=== PATIENT | female | born 1995 | race American Indian/Alaskan Native ===

== ENCOUNTER 2019-03-12 20:45 | Inpatient (IN) | payer MEDICARE ==
[2019-03-12] MEDS ORDERED: ZOFRAN IV PRN (21:01)
[2019-03-12] MEDS ORDERED: NUBAIN IV PRN (21:01)
[2019-03-12] MEDS ORDERED: NARCAN 0.4 MG/1 ML IV PRN (21:01)
[2019-03-12] MEDS ORDERED: BRETHINE IVP PRN (21:01)
[2019-03-12] MEDS ORDERED: PHENERGAN PO PRN (21:01)
[2019-03-12] MEDS ORDERED: BRETHINE SUB-Q PRN (21:01)
[2019-03-12] MEDS ORDERED: MINERAL OIL PO PRN (21:01)
[2019-03-12] MEDS ORDERED: XYLOCAINE 2% INFILTRATI ONE (21:01)
[2019-03-12] MEDS ORDERED: AMPICILLIN/NS 2 GM/100 ML 2 GM/100 ML BAG IV ONE (21:01)
[2019-03-12] MEDS ORDERED: CERVIDIL VG ONE (21:33)
--- NOTE | 2019-03-12 21:46 | History and Physical Report ---
History of Present Illness Date of examination: 03/12/19 Date of admission: 03/12/19 20:45 Chief complaint: Here for induction History of present illness: The patient is a 24 yo at 41.3 wks EGA who presents for IOL for post-dates. She reports positive movement, occasional contractions, and denies vaginal bleeding or leaking fluid. She has received care with [facility] since 26 weeks EGA. Her has been complicated by late care. She is GBS positive. Past History Past Medical History: hematologic disorders (HgbAS), other (Bipolar disorder) Past Surgical History: no surgical history [employer] History: abnormal PAP smear (ASCUS, HPV+ in November 2018) Family/Genetic History: diabetes, hypertension - Obstetrical History Expected Date of Delivery: 03/02/19 Actual Gestation: 41 Week(s) 3 Day(s) : 1 Para: 0 Hx # Term Pregnancies: 0 Number of Pregnancies: 0 Spontaneous Abortions: 0 Induced : 0 Number of Living Children: 0 Medications and Allergies Allergies Allergy/AdvReac Type Severity Reaction Status Date / Time No Known Drug Allergies Allergy Unknown Verified 03/12/19 21:18 Active Meds: Active Medications Ephedrine Sulfate (Ephedrine Sulfate) 10 mg IV Q2M PRN PRN Reason: Hypotension Fentanyl (Sublimaze) 100 mcg IV Q2H PRN PRN Reason: Labor Pain Oxytocin/Sodium Chloride (Pitocin/Ns 20 Unit/1000ml Drip) 20 units in 1,000 mls @ 125 mls/hr IV DIRECT NIKKI Oxytocin/Sodium Chloride (Pitocin/Ns 30 Unit/500ml) 30 units in 500 mls @ 1 mls/hr IV TITR NIKKI; Protocol Lactated Ringer's (Lactated Ringers) 1,000 mls @ 125 mls/hr IV DIRECT NIKKI Ampicillin Sodium (Ampicillin/Ns 2 Gm/100 Ml) 2 gm in 100 mls @ 100 mls/hr IV ONCE ONE; Protocol Stop: 03/12/19 22:00 Ampicillin Sodium (Ampicillin/Ns 1 Gm/50 Ml) 1 gm in 50 mls @ 100 mls/hr IV Q4HR NIKKI; Protocol Mineral Oil (Mineral Oil) 30 ml PO QHS PRN PRN Reason: Constipation Nalbuphine HCl (Nubain) 10 mg IV Q2H PRN PRN Reason: Pain, Moderate (4-6) Naloxone HCl (Narcan 0.4 Mg/1 Ml) 0.1 mg IV Q2MIN PRN PRN Reason: Res Rate </= 8 or 02 SAT < 92% Ondansetron HCl (Zofran) 4 mg IV Q8H PRN PRN Reason: Nausea And Vomiting Promethazine HCl (Phenergan) 25 mg PO Q6H PRN PRN Reason: Nausea And Vomiting Terbutaline Sulfate (Brethine) 0.25 mg SUB-Q ONCE PRN PRN Reason: Hyperstimulation/Hypertonicity Terbutaline Sulfate (Brethine) 0.25 mg IVP ONCE PRN PRN Reason: Hyperstimulation/Hypertonicity Review of Systems All systems: negative Cardiovascular: no chest pain Respiratory: no shortness of breath Genitourinary: contractions (occasional), no vaginal bleeding, no vaginal discharge, no leakage of fluid - Vital Signs Vital signs: Vital Signs Pulse BP 105 H 131/77 03/12/19 21:09 03/12/19 21:09 Temp Pulse Resp BP Pulse Ox 105 H 131/77 03/12/19 21:09 03/12/19 21:09 - Physical Exam Lungs: Positive: Normal air movement Abdomen: Positive: normal appearance, soft Genitourinary (Female): Positive: normal external genitalia, normal perenium. Negative: perineal/vulvar lesions Vagina: Positive: normal moisture Uterus: Positive: enlarged (gravid), normal contour Extremities: Positive: normal - Obstetrical FHR: category 1 Uterine Contraction Monitor Mode: External Cervical Dilatation: 1.5 Cervical Effacement Percentage: 50 station: -2 Uterine Contraction Frequency (min): 8 Uterine Contraction Duration: 45 Uterine Contraction Pattern: Irregular Results All other labs normal. Assessment and Plan 24 yo at 41.3 weeks EGA Post-dates - initiate IOL Unfavorable cervix- administer Cervidil GBS positive- Ampicillin prophylaxis Bipolar disorder- monitor mood Pain relief as requested. Plan for epidural once in active labor Anticipate
[2019-03-12] MEDS ORDERED: PITOCin/NS 20 UNIT/1000ML DRIP 20 UNITS/1,000 ML BAG IV SCH (22:00)
[2019-03-12] MEDS ORDERED: LACTATED RINGERS 1,000 ML IV SCH (22:00)
[2019-03-12] MEDS ORDERED: PITOCin/NS 30 UNIT/500ML 30 UNITS/500 ML BAG IV SCH (22:00)
[2019-03-12 22:18] LABS: Hematocrit 37.2 % (30.3-42.9); Hemoglobin 12.6 gm/dl (10.1-14.3); Mean Corpuscular HGB Conc 34 % (30-34); Mean Corpuscular Volume 84 fl (79-97); Platelet Count 195 K/mm3 (140-440); Red Blood Count 4.43 M/mm3 (3.65-5.03); Red Cell Distribution Width 17.3 % (13.2-15.2)
[2019-03-13] MEDS: AMPICILLIN/NS 1 GM/50 ML 1 GM/50 ML BAG IV SCH ×6 (02:00→22:04)
[2019-03-13] MEDS: LACTATED RINGERS 1,000 ML IV SCH ×2 (10:03→18:11)
[2019-03-13] MEDS: SUBLIMAZE IV PRN ×3 (10:17→22:04)
--- NOTE | 2019-03-13 12:43 | Progress Note ---
Assessment and Plan A/P HD#2 IOL for post dates s/p cervidil out at 12p continue IOL with pitocin low dose-declined cytotec continue maternal and status GBS +_ initated amp ( completed 2 doses ) expect vaginal delivery Subjective - Subjective Date of service: 03/13/19 Principal diagnosis: IOL for postdates Patient reports: movement normal, contractions, no new complaints, no loss of fluid, no vaginal bleeding Objective - Vital Signs Vital Signs: Vital Signs - 12hr 03/13/19 03/13/19 03/13/19 01:02 01:34 02:21 Temperature 98.6 F Pulse Rate 91 H 82 83 Respiratory Rate Blood Pressure 122/77 110/56 03/13/19 03/13/19 03/13/19 02:51 03:20 03:52 Temperature Pulse Rate 81 73 68 Respiratory Rate Blood Pressure 104/56 107/64 103/57 03/13/19 03/13/19 03/13/19 04:50 05:20 05:51 Temperature Pulse Rate 57 L 76 52 L Respiratory Rate Blood Pressure 116/67 105/61 104/61 03/13/19 03/13/19 03/13/19 06:21 06:46 06:51 Temperature 98.6 F Pulse Rate 59 L 74 Respiratory Rate Blood Pressure 111/75 110/79 03/13/19 03/13/19 03/13/19 07:20 07:51 08:22 Temperature Pulse Rate 71 62 70 Respiratory Rate Blood Pressure 109/69 104/73 117/59 03/13/19 03/13/19 03/13/19 09:20 09:50 10:00 Temperature 98.2 F Pulse Rate 82 70 Respiratory 18 Rate Blood Pressure 112/75 117/77 03/13/19 03/13/19 03/13/19 10:31 11:01 11:31 Temperature Pulse Rate 100 H 100 H 65 Respiratory Rate Blood Pressure 139/74 131/90 117/78 03/13/19 03/13/19 03/13/19 11:40 12:01 12:32 Temperature 98.0 F Pulse Rate 75 80 Respiratory 18 Rate Blood Pressure 117/77 122/63 - Exam Breasts: normal Cardiovascular: Regular rate, Normal S1 Lungs: Clear to auscultation, Normal air movement Abdomen: Present: normal appearance, soft, normal bowel sounds. Absent: distention, tenderness, guarding Vulva: both: normal Uterus: Present: normal, firm. Absent: bogginess, tenderness FHR: category 1 Cervical Dilatation: 1.5 Cervical Effacement Percentage: 60 station: -4 Uterine Contraction Pattern: Irregular Uterine Tone Measurement Phase: Contraction Uterine Contraction Intensity: Mild Extremities: normal Deep Tendon Reflex Grade: Normal +2 - Labs Labs: Abnormal Labs 03/12/19 21:15 RDW 17.3 H Laboratory Results - last 24 hr 03/12/19 03/12/19 03/12/19 21:15 21:15 21:15 WBC 8.4 RBC 4.43 Hgb 12.6 Hct 37.2 MCV 84 MCH 29 MCHC 34 RDW 17.3 H Plt Count 195 RPR Nonreactive Blood Type B POSITIVE Antibody Screen Negative
[2019-03-13] MEDS: PITOCin/NS 30 UNIT/500ML 30 UNITS/500 ML BAG IV SCH (14:07)
[2019-03-14] MEDS: LACTATED RINGERS 1,000 ML IV SCH ×3 (05:13→22:25)
[2019-03-14] MEDS: AMPICILLIN/NS 1 GM/50 ML 1 GM/50 ML BAG IV SCH ×3 (05:14→22:00)
[2019-03-14] MEDS: CYTOTEC VG PRN ×4 (05:14→17:01)
[2019-03-14] MEDS ORDERED: MARCAINE 0.25% INFILTRATI ONE (21:43)
[2019-03-14] MEDS ORDERED: NARCAN 2 MG/2 ML IV PRN (22:09)
--- NOTE | 2019-03-14 22:11 | Anesthesia Consultation ---
Anesthesia Consult and Med Hx Date of service: 03/14/19 - Airway Anesthetic Teeth Evaluation: Good ROM Head & Neck: Adequate Mental/Hyoid Distance: Adequate Mallampati Class: Class II Intubation Access Assessment: Good - Pulmonary Exam CTA: Yes - Cardiac Exam Cardiac Exam: RRR - Pre-Operative Health Status ASA Pre-Surgery Classification: ASA2, Emergency Proposed Anesthetic Plan: Epidural - Pulmonary Hx Asthma: No COPD: No Hx Pneumonia: No - Cardiovascular System Hx Hypertension: No - Central Nervous System Hx Seizures: No Hx Psychiatric Problems: No - Endocrine Hx Renal Disease: No Hx End Stage Renal Disease: No Hx Hypothyroidism: No Hx Hyperthyroidism: No - Hematic Hx Anemia: No Hx Sickle Cell Disease: Yes - Other Systems Hx Alcohol Use: No
[2019-03-14] MEDS: PITOCin/NS 30 UNIT/500ML 30 UNITS/500 ML BAG IV SCH (22:24)
[2019-03-14] MEDS: fentaNYL-BUPIV 2 MCG/ML-0.125% 200 MCG/100 ML BAG EPIDURAL SCH (22:27)
[2019-03-15] MEDS: LACTATED RINGERS 1,000 ML IV SCH ×2 (01:45→05:11)
[2019-03-15] MEDS ORDERED: XYLOCAINE MPF 2% ONE (04:54)
[2019-03-15] MEDS ORDERED: REGLAN ONE (05:38)
[2019-03-15] MEDS ORDERED: ANCEF/STERILE WATER 2 GM/20 ML 0 GM/0 ML SYRINGE IV ONE (05:38)
[2019-03-15] MEDS ORDERED: PEPCID IV ONE (05:38)
[2019-03-15] MEDS ORDERED: BICITRA ONE (05:38)
[2019-03-15] MEDS: AMPICILLIN/NS 1 GM/50 ML 1 GM/50 ML BAG IV SCH (05:39)
[2019-03-15] MEDS: fentaNYL-BUPIV 2 MCG/ML-0.125% 200 MCG/100 ML BAG EPIDURAL SCH (07:46)
[2019-03-15] MEDS ORDERED: XYLOCAINE 2% INFILTRATI ONE ×2 (08:44→11:00)
[2019-03-15] MEDS ORDERED: METHERGINE IM ONE ×2 (08:46→11:00)
[2019-03-15] MEDS ORDERED: PHENERGAN PO PRN (09:41)
[2019-03-15] MEDS ORDERED: NORCO 5/325 PO PRN (09:41)
[2019-03-15] MEDS ORDERED: DULCOLAX PR PRN (09:41)
[2019-03-15] MEDS ORDERED: TUCKS PAD TP PRN (09:41)
[2019-03-15] MEDS ORDERED: LANSINOH TP PRN (09:41)
[2019-03-15] MEDS ORDERED: MILK OF MAGNESIA PO PRN (09:41)
[2019-03-15] MEDS ORDERED: ZOFRAN IV PRN (09:41)
[2019-03-15] MEDS ORDERED: BENADRYL PO PRN (09:41)
[2019-03-15] MEDS ORDERED: TYLENOL PO PRN (09:41)
[2019-03-15] MEDS ORDERED: PHENERGAN PR PRN (09:41)
--- NOTE | 2019-03-15 09:50 | Progress Note ---
Assessment and Plan Continue this induction of labor. Anticipate . Subjective - Subjective Date of service: 03/14/19 Principal diagnosis: IOL for postdates Interval history: Patient received cervidil but had no cervical change. On Saturday Pm, she was switched to Cytotec and after 4 doses had srom on 03/14. Patient reports: movement normal, contractions, no new complaints, no loss of fluid, no vaginal bleeding Objective - Vital Signs Vital Signs: Vital Signs - 12hr 03/14/19 03/14/19 03/14/19 21:49 21:51 21:53 Temperature Pulse Rate 75 75 89 Respiratory Rate Blood Pressure 131/90 133/78 150/67 Blood Pressure [Right] O2 Sat by Pulse 99 Oximetry 03/14/19 03/14/19 03/14/19 21:54 21:56 21:57 Temperature Pulse Rate 80 85 58 L Respiratory Rate Blood Pressure 114/78 115/70 Blood Pressure [Right] O2 Sat by Pulse 99 Oximetry 03/14/19 03/14/19 03/14/19 21:59 22:01 22:03 Temperature Pulse Rate 69 65 76 Respiratory Rate Blood Pressure 123/79 122/70 131/78 Blood Pressure [Right] O2 Sat by Pulse 98 Oximetry 03/14/19 03/14/19 03/14/19 22:04 22:05 22:07 Temperature Pulse Rate 71 67 63 Respiratory Rate Blood Pressure 126/84 126/77 Blood Pressure [Right] O2 Sat by Pulse 99 Oximetry 03/14/19 03/14/19 03/14/19 22:09 22:11 22:13 Temperature Pulse Rate 65 76 56 L Respiratory Rate Blood Pressure 128/75 121/70 122/71 Blood Pressure [Right] O2 Sat by Pulse 100 Oximetry 03/14/19 03/14/19 03/14/19 22:14 22:15 22:17 Temperature Pulse Rate 67 64 64 Respiratory Rate Blood Pressure 119/72 120/73 Blood Pressure [Right] O2 Sat by Pulse 98 Oximetry 03/14/19 03/14/19 03/14/19 22:19 22:21 22:24 Temperature Pulse Rate 60 74 60 Respiratory Rate Blood Pressure 118/76 120/75 126/82 Blood Pressure [Right] O2 Sat by Pulse 99 99 Oximetry 03/14/19 03/14/19 03/14/19 22:25 22:27 22:29 Temperature Pulse Rate 70 54 L 61 Respiratory Rate Blood Pressure 121/83 121/79 117/79 Blood Pressure [Right] O2 Sat by Pulse 99 Oximetry 03/14/19 03/14/19 03/15/19 22:34 22:39 00:12 Temperature Pulse Rate 72 68 63 Respiratory Rate Blood Pressure Blood Pressure [Right] O2 Sat by Pulse 99 100 98 Oximetry 03/15/19 03/15/19 03/15/19 00:17 00:22 00:24 Temperature Pulse Rate 56 L 64 78 Respiratory Rate Blood Pressure Blood Pressure [Right] O2 Sat by Pulse 97 96 86 Oximetry 03/15/19 03/15/19 03/15/19 00:27 00:32 00:33 Temperature Pulse Rate 53 L 71 55 L Respiratory Rate Blood Pressure Blood Pressure [Right] O2 Sat by Pulse 97 99 85 Oximetry 03/15/19 03/15/19 03/15/19 00:37 00:39 00:43 Temperature Pulse Rate 82 70 Respiratory Rate Blood Pressure Blood Pressure [Right] O2 Sat by Pulse 27 L 1 L 100 Oximetry 03/15/19 03/15/19 03/15/19 00:48 00:53 00:58 Temperature Pulse Rate 59 L 61 65 Respiratory Rate Blood Pressure Blood Pressure [Right] O2 Sat by Pulse 97 98 98 Oximetry 03/15/19 03/15/19 03/15/19 01:03 01:08 01:13 Temperature Pulse Rate 56 L 74 69 Respiratory Rate Blood Pressure Blood Pressure [Right] O2 Sat by Pulse 99 100 99 Oximetry 03/15/19 03/15/19 03/15/19 01:18 01:23 01:28 Temperature Pulse Rate 59 L 60 60 Respiratory Rate Blood Pressure Blood Pressure [Right] O2 Sat by Pulse 100 99 100 Oximetry 03/15/19 03/15/19 03/15/19 01:33 01:38 01:43 Temperature Pulse Rate 68 61 59 L Respiratory Rate Blood Pressure Blood Pressure [Right] O2 Sat by Pulse 99 100 99 Oximetry 03/15/19 03/15/19 03/15/19 01:48 01:53 01:58 Temperature Pulse Rate 57 L 62 65 Respiratory Rate Blood Pressure Blood Pressure [Right] O2 Sat by Pulse 99 100 100 Oximetry 03/15/19 03/15/19 03/15/19 02:03 02:08 02:13 Temperature Pulse Rate 72 67 69 Respiratory Rate Blood Pressure Blood Pressure [Right] O2 Sat by Pulse 100 100 100 Oximetry 03/15/19 03/15/19 03/15/19 02:18 02:23 02:28 Temperature Pulse Rate 69 95 H 82 Respiratory Rate Blood Pressure Blood Pressure [Right] O2 Sat by Pulse 100 100 100 Oximetry 03/15/19 03/15/19 03/15/19 02:33 02:38 02:43 Temperature Pulse Rate 74 98 H 74 Respiratory Rate Blood Pressure Blood Pressure [Right] O2 Sat by Pulse 100 100 100 Oximetry 03/15/19 03/15/19 03/15/19 02:48 02:53 02:58 Temperature Pulse Rate 91 H 98 H 95 H Respiratory Rate Blood Pressure Blood Pressure [Right] O2 Sat by Pulse 100 100 100 Oximetry 03/15/19 03/15/19 03/15/19 03:03 03:08 03:13 Temperature Pulse Rate 91 H 83 86 Respiratory Rate Blood Pressure Blood Pressure [Right] O2 Sat by Pulse 100 100 100 Oximetry 03/15/19 03/15/19 03/15/19 03:18 03:23 03:28 Temperature Pulse Rate 99 H 87 91 H Respiratory Rate Blood Pressure Blood Pressure [Right] O2 Sat by Pulse 100 100 100 Oximetry 03/15/19 03/15/19 03/15/19 03:33 03:38 03:43 Temperature Pulse Rate 98 H 79 68 Respiratory Rate Blood Pressure Blood Pressure [Right] O2 Sat by Pulse 100 100 100 Oximetry 03/15/19 03/15/19 03/15/19 03:48 03:53 03:58 Temperature Pulse Rate 91 H 88 81 Respiratory Rate Blood Pressure Blood Pressure [Right] O2 Sat by Pulse 100 100 100 Oximetry 03/15/19 03/15/19 03/15/19 04:03 04:08 04:13 Temperature Pulse Rate 93 H 79 81 Respiratory Rate Blood Pressure Blood Pressure [Right] O2 Sat by Pulse 100 100 100 Oximetry 03/15/19 03/15/19 03/15/19 04:18 04:23 04:28 Temperature Pulse Rate 82 71 86 Respiratory Rate Blood Pressure Blood Pressure [Right] O2 Sat by Pulse 100 100 100 Oximetry 03/15/19 03/15/19 03/15/19 04:33 04:38 04:43 Temperature Pulse Rate 79 68 70 Respiratory Rate Blood Pressure Blood Pressure [Right] O2 Sat by Pulse 100 100 100 Oximetry 03/15/19 03/15/19 03/15/19 04:48 04:53 04:58 Temperature Pulse Rate 67 71 69 Respiratory Rate Blood Pressure Blood Pressure [Right] O2 Sat by Pulse 100 100 100 Oximetry 03/15/19 03/15/19 03/15/19 05:03 05:08 05:13 Temperature Pulse Rate 64 63 79 Respiratory Rate Blood Pressure Blood Pressure [Right] O2 Sat by Pulse 100 100 100 Oximetry 03/15/19 03/15/19 03/15/19 05:18 05:23 05:39 Temperature Pulse Rate 74 69 72 Respiratory Rate Blood Pressure Blood Pressure [Right] O2 Sat by Pulse 100 100 100 Oximetry 03/15/19 03/15/19 03/15/19 05:44 05:49 05:54 Temperature Pulse Rate 72 73 90 Respiratory Rate Blood Pressure Blood Pressure [Right] O2 Sat by Pulse 100 100 100 Oximetry 03/15/19 03/15/19 03/15/19 05:59 06:04 06:09 Temperature Pulse Rate 95 H 84 97 H Respiratory Rate Blood Pressure Blood Pressure [Right] O2 Sat by Pulse 100 100 100 Oximetry 03/15/19 03/15/19 03/15/19 06:14 06:19 06:24 Temperature Pulse Rate 77 71 82 Respiratory Rate Blood Pressure Blood Pressure [Right] O2 Sat by Pulse 100 100 100 Oximetry 03/15/19 03/15/19 03/15/19 06:29 06:34 06:39 Temperature Pulse Rate 105 H 71 105 H Respiratory Rate Blood Pressure Blood Pressure [Right] O2 Sat by Pulse 100 100 100 Oximetry 03/15/19 03/15/19 03/15/19 06:44 06:49 06:54 Temperature Pulse Rate 110 H 74 95 H Respiratory Rate Blood Pressure Blood Pressure [Right] O2 Sat by Pulse 100 100 100 Oximetry 03/15/19 03/15/19 03/15/19 06:59 07:04 07:09 Temperature Pulse Rate 85 95 H 85 Respiratory Rate Blood Pressure Blood Pressure [Right] O2 Sat by Pulse 100 100 100 Oximetry 03/15/19 03/15/19 03/15/19 07:14 07:19 07:24 Temperature Pulse Rate 77 67 73 Respiratory Rate Blood Pressure Blood Pressure [Right] O2 Sat by Pulse 100 100 100 Oximetry 03/15/19 03/15/19 03/15/19 07:29 07:34 07:39 Temperature Pulse Rate 76 97 H 89 Respiratory Rate Blood Pressure Blood Pressure [Right] O2 Sat by Pulse 100 100 100 Oximetry 03/15/19 03/15/19 03/15/19 07:43 07:44 07:49 Temperature Pulse Rate 81 90 86 Respiratory Rate Blood Pressure 113/64 Blood Pressure [Right] O2 Sat by Pulse 100 100 Oximetry 03/15/19 03/15/19 03/15/19 07:54 07:59 08:04 Temperature Pulse Rate 85 90 82 Respiratory Rate Blood Pressure Blood Pressure [Right] O2 Sat by Pulse 100 100 99 Oximetry 03/15/19 03/15/19 03/15/19 08:09 08:14 08:19 Temperature Pulse Rate 95 H 110 H 103 H Respiratory Rate Blood Pressure Blood Pressure [Right] O2 Sat by Pulse 100 100 100 Oximetry 03/15/19 03/15/19 03/15/19 08:24 08:29 08:34 Temperature Pulse Rate 125 H 87 129 H Respiratory Rate Blood Pressure Blood Pressure [Right] O2 Sat by Pulse 98 100 99 Oximetry 03/15/19 03/15/19 03/15/19 08:39 08:44 08:49 Temperature Pulse Rate 118 H 117 H 110 H Respiratory Rate Blood Pressure 105/64 Blood Pressure [Right] O2 Sat by Pulse 98 98 99 Oximetry 03/15/19 03/15/19 03/15/19 08:54 08:59 09:01 Temperature Pulse Rate 104 H 105 H 110 H Respiratory Rate Blood Pressure 113/71 Blood Pressure [Right] O2 Sat by Pulse 100 100 100 Oximetry 03/15/19 03/15/19 03/15/19 09:02 09:06 09:11 Temperature 98.7 F Pulse Rate 102 H 107 H 97 H Respiratory 18 Rate Blood Pressure 118/67 Blood Pressure 113/71 [Right] O2 Sat by Pulse 99 100 99 Oximetry 03/15/19 03/15/19 03/15/19 09:16 09:21 09:26 Temperature Pulse Rate 92 H 98 H 100 H Respiratory Rate Blood Pressure 118/68 115/74 113/73 Blood Pressure [Right] O2 Sat by Pulse 99 99 98 Oximetry 03/15/19 03/15/19 09:31 09:33 Temperature Pulse Rate 82 86 Respiratory Rate Blood Pressure 117/80 Blood Pressure [Right] O2 Sat by Pulse 99 Oximetry - Exam Breasts: deferred Lungs: Clear to auscultation, Normal air movement Abdomen: Present: normal appearance, soft, normal bowel sounds Uterus: Present: normal, firm FHR: auscultation normal Cervical Dilatation: 8 - Labs Labs: Abnormal Labs 03/12/19 21:15 RDW 17.3 H
--- NOTE | 2019-03-15 09:55 | Procedure Note ---
OB Delivery Note - Delivery Date of Delivery: 03/15/19 Surgeon: NIMCO MERCER Estimated blood loss: 300cc - Vaginal Delivery presentation: vertex Delivery position: OA Intrapartum events: prolonged labor- > = 20hr Delivery induction: none Delivery augmentation: pitocin Delivery monitor: external FHT, external uterine Route of delivery: vacuum extraction Indicators for instrumentation: nonreassuring FHR tracing Delivery placenta: spontaneous Delivery cord: 3 umbilical vessels Episiotomy: none Delivery laceration: vaginal side wall Anesthesia: epidural Delivery comments: Viable female delivered over intact perineum with vacuum assistance. No nuchal cord. placed on maternal abdomen. Cord clamped and cut when done pulsating. Placenta delivered spontaneously and intact with 3vc. Sidewall laceration repaired with 3.-0 vicryl for excellent hemostasis. Pt tolerated procedure well. - A at 1 minute: 9 at 5 minutes: 9 Gender: Female (8 pounds 6 ounces)
[2019-03-15] MEDS ORDERED: SODIUM CHLORIDE FLUSH SYRINGE 10 ML IV NR (10:00)
--- NOTE | 2019-03-15 10:06 | Post Anesthesia Evaluation ---
- Post Anesthesia Evaluation Patient Participated: Yes Airway Patent: Yes Stable Respiratory Function: Yes Nausea/Vomiting: No Temp > 96.8F: Yes Pain Manageable: Yes Adequeate Hydration: Yes Anesthesia Complications: No Block Receding Appropriately: Yes
[2019-03-15] MEDS ORDERED: PRENATAL VITAMIN PO SCH (11:00)
[2019-03-15] MEDS: IBUPROFEN PO SCH (17:23)
[2019-03-15] MEDS: COLACE PO SCH (22:53)
[2019-03-15 23:41] LABS: Hematocrit 29.4 % (30.3-42.9); Hemoglobin 9.9 gm/dl (10.1-14.3)
[2019-03-16] MEDS: IBUPROFEN PO SCH ×3 (00:10→11:47)
--- NOTE | 2019-03-16 08:40 | Progress Note ---
Assessment and Plan - Patient Problems (1) Post-term Current Visit: Yes Status: Acute Plan to address problem: patient doing well discharge home Subjective - Subjective Date of service: 03/16/19 Principal diagnosis: IOL for postdates Interval history: Patient complains of minor uterine cramping and back pain. Tolerating regular diet. Patient reports: appetite normal, voiding normally : doing well Objective - Vital Signs Latest vital signs: Vital Signs Temp Pulse Resp BP BP Pulse Ox 03/16/19 01:20 98.6 F 74 20 102/58 98 03/15/19 20:30 99.3 F 93 H 18 118/70 97 03/15/19 17:23 20 03/15/19 16:42 99.1 F 85 18 114/81 97 03/15/19 11:35 98.2 F 86 20 121/74 03/15/19 09:56 18 03/15/19 09:33 86 117/80 03/15/19 09:31 82 99 03/15/19 09:26 100 H 113/73 98 03/15/19 09:21 98 H 115/74 99 03/15/19 09:16 92 H 118/68 99 03/15/19 09:11 97 H 118/67 99 03/15/19 09:06 107 H 100 03/15/19 09:02 98.7 F 102 H 18 113/71 99 03/15/19 09:01 110 H 113/71 100 03/15/19 08:59 105 H 100 03/15/19 08:54 104 H 100 03/15/19 08:49 110 H 105/64 99 03/15/19 08:44 117 H 98 Intake and Output 03/15/19 03/16/19 03/16/19 22:59 06:59 14:59 Intake Total 1320 600 Balance 1320 600 Intake: Oral 480 Intake, Free Water 840 600 Other: Total, Intake Amount 480 # Voids Void 4 1 - Exam Uterus: Present: normal, firm - Labs Labs: Abnormal lab results 03/15/19 Range/Units 22:59 Hgb 9.9 L (10.1-14.3) gm/dl Hct 29.4 L (30.3-42.9) %
--- NOTE | 2019-03-16 08:41 | Discharge Summary ---
Providers - Providers Date of Admission: 03/12/19 20:45 Date of discharge: 03/16/19 Attending physician: ROSALINE SHERMAN Primary care physician: ROSALINE SHERMAN Hospitalization Reason for admission: induction of labor Delivery: Discharge diagnosis: IUP at term delivered Hospital course: Patient admitted for IOL. Had a . uncomplicated Condition at discharge: Good Disposition: DC-01 TO HOME OR SELFCARE - Discharge Diagnoses (1) Post-term Status: Acute Plan - Discharge Medications Prescriptions: Ibuprofen [Motrin] 800 mg PO Q8HR PRN #40 tablet PRN Reason: Pain, Moderate (4-6) HYDROcodone/APAP 5-325 [[place] 5/325] 1 each PO Q6HR PRN #20 tablet PRN Reason: Pain - Provider Discharge Summary Activity: no sex for 6 weeks, no heavy lifting 4 weeks, no strenuous exercise Diet: routine Instructions: routine Additional instructions: [] Smoking cessation referral if applicable(refer to patient education folder for contact #) [] Refer to [facility] Booklet Call your doctor immediately for: * Fever > 100.5 * Heavy vaginal bleeding ( >1 pad per hour) * Severe persistent headache * Shortness of breath * Reddened, hot, painful area to leg or breast * Drainage or odor from incision. * Keep incision clean and dry at all times and follow doctor's instructions regarding bathing/showering schedule followup in 4 weeks - Follow up plan
[2019-03-16] MEDS: COLACE PO SCH (09:38)
[2019-03-16 15:55] VITALS: BP 99/62
== END 2019-03-16 13:30 | disposition home or self-care (01) | DRG 806 ==
LOC: LD 20:45 → OB 03-15 11:18
PROVIDERS: ADMIT Obstetrics & Gynecology; ATTEND Obstetrics & Gynecology
PROC: 10D07Z6 Extraction of Products of Conception, Vacuum, Via Natural or Artificial Opening (ICD-10-PCS; principal; 2019-03-15)
PROC: 3E0R3BZ Introduction of Anesthetic Agent into Spinal Canal, Percutaneous Approach (ICD-10-PCS; 2019-03-15)
PROC: 00HU33Z Insertion of Infusion Device into Spinal Canal, Percutaneous Approach (ICD-10-PCS; 2019-03-15)
PROC: 0UQGXZZ Repair Vagina, External Approach (ICD-10-PCS; 2019-03-15)
DX: O76 Abnormality in fetal heart rate and rhythm complicating labor and delivery (principal); O71.4 Obstetric high vaginal laceration alone; Z37.0 Single live birth; O48.0 Post-term pregnancy; O63.1 Prolonged second stage (of labor); O99.824 Streptococcus B carrier state complicating childbirth; O99.344 Other mental disorders complicating childbirth; F31.9 Bipolar disorder, unspecified; Z82.49 Family history of ischemic heart disease and other diseases of the circulatory system; Z3A.41 41 weeks gestation of pregnancy; Z83.3 Family history of diabetes mellitus
CPT/HCPCS: 36415; 59200; 85014; 85018; 85027; 86592; 86850; 86900; 86901; G0378; J0290; J0690; J2210; J2300; J2405; J2590; J2765; J3010; J3105; J7120